=== PATIENT | male | born 2000 | race Two or more races ===

== ENCOUNTER 2019-04-26 16:36 | Emergency (ER) | payer MEDICAID ==
[~2019-04-26] VITALS: Ht 193 cm; Wt 127.0 kg
[2019-04-26] MEDS ORDERED: SODIUM CHLORIDE 0.9% 1,000 ML IV ONE (19:00)
[2019-04-26] MEDS ORDERED: ALPRAZOLAM 0.25 MG TABLET PO ONE (19:15)
[2019-04-26 19:50] LABS: CHLORIDE 103 mEq/L (98-107)
[2019-04-26 19:52] LABS: BASOPHILS % 0.8 % (0.0-2.0); EOSINOPHILS % 0.5 % (0.0-5.0); HEMATOCRIT. 48.6 % (42.0-52.0); HEMOGLOBIN. 16.3 g/dL (14.0-18.0); LYMPHOCYTES % 30.1 % (20.0-50.0); MEAN CORPUSCULAR HEMOGLOBIN 28.9 pg (28.0-32.0); MEAN CORPUSCULAR VOLUME 86.3 fL (80.0-94.0); MEAN PLATELET VOLUME 7.7 fl (7.4-10.4); MONOCYTES % 6.4 % (2.0-8.0); NEUTROPHILS % 62.2 % (40.0-76.0); PLATELET 312 x1000/uL (130-400); RED BLOOD CELL COUNT 5.63 mill/uL (4.7-6.1); RED CELL DISTRIBUTION WIDTH 12.6 % (11.6-14.6)
[2019-04-26 22:21] VITALS: BP 102/60
== END 2019-04-26 22:44 | disposition home or self-care (01) ==
LOC: ER 16:36
DX: R06.02 Shortness of breath (principal); F17.200 Nicotine dependence, unspecified, uncomplicated
CPT/HCPCS: 36415; 71045; 80053; 83880; 84484; 85025; 93005; 99284; 99406; J7030